=== PATIENT | male | born 1970 | race Caucasian/White ===

== ENCOUNTER → 2018-06-06 14:45 | Emergency (ER) | payer SELFPAY ==
[~2018-06-06 14:45] MED LIST: Iohexol 300* (CONTRAST) 10 ML SDV IV ONE; NS 0.9% 1000 ML* 1,000 ML IV ONE; Ondansetron INJ* 2 MG/ML VIAL IV ONE
[2018-06-06 15:53] LABS: ABS Basophils 0 10^3/ul (0-0.2); ABS Eosinophils 0.4 10^3/ul (0-0.6); ABS Lymphocytes 0.9 10^3/ul (1.0-4.8); ABS Monocytes 0.4 10^3/ul (0-0.8); ABS Nucleated RBC 0 10^3/ul; Eosinophil % 5.5 % (0-6); Hematocrit 50 % (42-52); Hemoglobin 17.1 g/dl (14.0-18.0); Mean Corpuscular HGB Conc 34 g/dl (31-36); Mean Corpuscular Hemoglobin 30 pg (27-31); Mean Corpuscular Volume 89 fL (80-94); Mean Platelet Volume 8.1 um3 (7.4-10.4); Nucleated Red Blood Cells % 0.1; Platelet Count 232 10^3/ul (150-450); Red Blood Count 5.61 10^6/ul (4.00-5.40); Red Cell Distribution Width 14 % (10.5-15); White Blood Count 7.7 10^3/ul (3.5-10.8)
[2018-06-06] MEDS: Morphine VIAL* 10 MG/ML 1 ML VIAL IV ONE ×2 (15:54→16:01)
--- NOTE | 2018-06-06 15:55 | ED ---
Headache - HPI Summary HPI Summary: This patient is a 48 year old M presenting to [facility] with a chief complaint of SANTOS since yesterday 06/05/18. PMHx migraines. He endorses CP, abd pain, nausea, and dizziness/vertigo. He denies fever. Pt denies alcohol, tobacco, substance use. Rx Adderall, Diclofenac, ASA. - History Of Current Complaint Chief Complaint: EDAbdPain Stated Complaint: VERTIGO Time Seen by Provider: 06/06/18 15:12 Hx Obtained From: Patient Onset/Duration: Sudden Onset, Started days ago, Still Present Initially Headache Was: Initial Pain Scale(0-10)= - 10, Severe Currently Pain Is: Current Pain Scale(0-10)= - 10, Severe Timing: Constant, Days Location of Headache: Diffuse Aggravating Factor: Nothing Allevating Factors: Rest Associated Signs And Symptoms: Dizziness, Nausea - Allergies/Home Medications Allergies/Adverse Reactions: Allergies Allergy/AdvReac Type Severity Reaction Status Date / Time indomethacin Allergy Unknown Verified 06/06/18 14:53 Reaction Details Home Medications: Home Medications Aspirin 81 mg CHEW TAB* [Aspirin Low Dose TAB*] 81 mg PO DAILY 06/06/18 [ History Confirmed 06/06/18] Dextroamphetamine/Amphetamine [Adderall 20 mg Tablet] 1 tab PO BID 06/06/18 [ History Confirmed 06/06/18] PMH/Surg Hx/FS Hx/Imm Hx Endocrine/Hematology History: Denies: Hx Sickle Cell Disease Cardiovascular History: Denies: Hx Pacemaker/ICD Respiratory History: Denies: Hx Lung Cancer GI History: Denies: Hx Ileostomy History: Denies: Hx Dialysis Musculoskeletal History: Denies: Hx Osteoporosis Sensory History: Denies: Hx Legally Blind, Hx Deafness Opthamlomology History: Denies: Hx Legally Blind EENT History: Denies: Hx Deafness Neurological History: Reports: Hx Migraine Psychiatric History: Reports: Hx Attention Deficit Hyperactivity Disorder - Surgical History Surgery Procedure, Year, and Place: 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 Infectious Disease History: No Infectious Disease History: Denies: Traveled Outside the [place] in Last 30 Days - Family History Known Family History: Positive: Hypertension, Diabetes - Social History Occupation: Employed Full-time Lives: Alone Alcohol Use: None Hx Substance Use: No Substance Use Type: Reports: None Hx Tobacco Use: Yes Smoking Status (MU): Light Every Day Tobacco Smoker Review of Systems Negative: Fever Positive: Chest Pain Positive: Abdominal Pain, Nausea Positive: no symptoms reported Neurological: Other - dizziness/vertigo Positive: Headache All Other Systems Reviewed And Are Negative: Yes Physical Exam - Summary Physical Exam Summary: Appearance: Well appearing, no pain distress Skin: warm, dry, reflects adequate perfusion Head/face: normal Eyes: EOMI, RAE ENT: normal Neck: supple, non-tender Respiratory: CTA, breath sounds present Cardiovascular: RRR, pulses symmetrical Abdomen: RLQ tenderness, soft Bowel: present Musculoskeletal: normal, strength/ROM intact Neuro: normal, sensory motor intact, A&Ox3 Triage Information Reviewed: Yes Vital Signs On Initial Exam: Initial Vitals Temp Pulse Resp BP Pulse Ox 97.6 F 78 18 140/86 94 06/06/18 14:47 06/06/18 14:47 06/06/18 14:47 06/06/18 14:47 06/06/18 14:47 Vital Signs Reviewed: Yes Diagnostics - Vital Signs Vital Signs Temp Pulse Resp BP Pulse Ox 06/06/18 14:47 97.6 F 78 18 140/86 94 - Laboratory Result Diagrams: 06/06/18 15:38 06/06/18 15:38 Lab Statement: Any lab studies that have been ordered have been reviewed, and results considered in the medical decision making process. - CT Brain CT Interpretation: No Acute Changes CT Interpretation Completed By: Radiologist - No acute findings. Dr. Ledezma has reviewed this report. A/P CT Interpretation: No Acute Changes CT Interpretation Completed By: Radiologist - No acute findings or evidence of appendicitis. Dr. Ledezma has reviewed this report. - EKG 1457 Cardiac Rate: NL - 77 EKG Rhythm: Sinus Rhythm ST Segment: Normal Ectopy: None EKG Interpretation: No acute changes. Re-Evaluation - Re-Evaluation First Eval Change: Improved Comment: Pt feels a little better, discussed (-) imaging and labs, amenable to discharge. Headache Course/Dx - Course Course Of Treatment: A 48-year-old M presents to the ED with a CC of 10/10 SANTOS since yesterday. (+) dizziness/vertigo, CP, abd pain, nausea. (-) fever. PMHx migraines. A CT A/P was (-). A CTB was (-). An EKG reveals NSR at 77 BPM with no acute changes. In the ED course, pt was given morphine, zofran. pt feels better and have some dizziness with movement of head. pt will be given zofron and will dc home to follow up with pmd in three days. - Diagnoses Differential Diagnosis/HQI/PQRI: Migraine, Sinus Headache, Other - dizziness/ abd pain/diverticulitis Provider Diagnoses: Dizziness, Headache, Abdominal pain Discharge - Sign-Out/Discharge Documenting (check all that apply): Patient Departure - discharge - Discharge Plan Condition: Stable Disposition: HOME Prescriptions: Meclizine TAB* [Antivert 12.5 TAB*] 25 mg PO TID PRN #15 tab MDD 3 PRN Reason: Dizziness Patient Education Materials: Abdominal Pain (ED), Dizziness (ED), General Headache (ED) Referrals: [facility] [Provider Group] Additional Instructions: Return to the emergency department for any new or worsening symptoms. - Billing Disposition and Condition Condition: STABLE Disposition: Home - Attestation Statements Document Initiated by Leniibe: Yes Documenting Scribe: Flaco Medrano Provider For Whom [facility] is Documenting (Include Credential): Dr. Mayank Ledezma MD Scribe Attestation: Flaco Blank scribed for Dr. Mayank Ledezma MD on 06/06/18 at 1950. Scribe Documentation Reviewed: Yes Provider Attestation: The documentation as recorded by the Flaco reyez accurately reflects the service I personally performed and the decisions made by me, Dr. Mayank Ledezma MD
[2018-06-06 16:06] LABS: INR 0.94 (0.77-1.02)
[2018-06-06 16:10] LABS: EGFR Non-African American 64.9 (>60)
[2018-06-06 18:27] LABS: Urine Appearance Clear; Urine Blood Negative (Negative); Urine Color Yellow; Urine Ketones Negative (Negative); Urine Protein Negative (Negative); Urine Specific Gravity 1.036 (1.010-1.030); Urine Urobilinogen Negative (Negative)
--- NOTE | 2018-06-06 18:27 | RAD ---
EXAM: CT Head Without Intravenous Contrast CLINICAL HISTORY: 48 years old, male; Pain; Headache; Additional info: Severe headache TECHNIQUE: Axial computed tomography images of the head/brain without intravenous contrast. All CT scans at this facility use at least one of these dose optimization techniques: automated exposure control; mA and/or kV adjustment per patient size (includes targeted exams where dose is matched to clinical indication); or iterative reconstruction. COMPARISON: No relevant prior studies available. FINDINGS: Brain: Unremarkable. No hemorrhage. No significant white matter disease. No edema. Ventricles: Unremarkable. No ventriculomegaly. Bones/joints: A rounded hyperdensity near the right foramina of [place] likely representing a calcification. No acute fracture. Soft tissues: Unremarkable. Sinuses: Unremarkable as visualized. No acute sinusitis. Mastoid air cells: Unremarkable as visualized. No mastoid effusion. IMPRESSION: No acute findings.
--- NOTE | 2018-06-06 19:16 | RAD ---
EXAM: CT Abdomen and Pelvis With Intravenous Contrast CLINICAL HISTORY: 48 years old, male; Pain; Abdominal pain; Additional info: Appendicitis TECHNIQUE: Axial computed tomography images of the abdomen and pelvis with intravenous contrast. All CT scans at this facility use at least one of these dose optimization techniques: automated exposure control; mA and/or kV adjustment per patient size (includes targeted exams where dose is matched to clinical indication); or iterative reconstruction. Coronal and sagittal reformatted images were created and reviewed. CONTRAST: 136 mL of omnipaque 300 administered intravenously. COMPARISON: No relevant prior studies available. FINDINGS: Lung bases: Unremarkable. No mass. No consolidation. ABDOMEN: Liver: Unremarkable. No mass. Gallbladder and bile ducts: Unremarkable. No calcified stones or biliary dilation. Pancreas: Unremarkable. No mass. Spleen: Unremarkable. Adrenals: Unremarkable. No mass. Kidneys and ureters: No hydronephrosis or hydroureter. Cortical scarring is noted in the medial aspect of the left kidney. A 4 mm cortical hypodensity at the lower pole of the left kidney is too small to characterize but likely a tiny cyst. Stomach and bowel: Unremarkable. No obstruction. PELVIS: Appendix: Normal in appearance. No inflammatory change in right lower quadrant. Bladder: Unremarkable. Reproductive: Unremarkable as visualized. ABDOMEN and PELVIS: Intraperitoneal space: Unremarkable. No free air or free fluid. Bones/joints: No acute fracture or aggressive osseous lesions Soft tissues: Bilateral fat-containing inguinal hernias are present, right larger than left. No evidence of strangulation. Vasculature: Unremarkable. No abdominal aortic aneurysm. Lymph nodes: Unremarkable. No enlarged lymph nodes. IMPRESSION: No acute findings or evidence of appendicitis.
[2018-06-06 19:39] VITALS: BP 130/96
== END | disposition home or self-care (01) ==
LOC: ED 14:45
DX: R42 Dizziness and giddiness (principal); R51 Headache; R10.31 Right lower quadrant pain; R11.0 Nausea; Z88.6 Allergy status to analgesic agent; F17.200 Nicotine dependence, unspecified, uncomplicated
CPT/HCPCS: 36415; 70450; 74177; 80053; 81003; 83690; 84484; 85025; 85610; 85730; 93005; 96361; 96374; 96375; 99283; J2270; J2405; Q9967